=== PATIENT | male | born 2000 | race Native Hawaiian/Other Pacific Islander ===

== ENCOUNTER 2021-11-28 08:09 | Emergency (ER) | payer OTHER ==
[~2021-11-28] VITALS: Ht 177.8 cm; Wt 136.1 kg
[~2021-11-28 08:09] MED LIST: ACETAMINOPHEN-120 ML PO; ADVAIR 100-501 EACH; ALBUTEROL NEB; AZITHROMYCIN 2250 MG PO; IBUPROFEN 800800 M1 PO; PREDNISONE50 MG PO; PROAIR HFA8.5 GM IH; SINGULAIR 10 MG10 M1; TRIAMCINOLONE A15 G1; VENTOLIN HFA INH8 GM; ZPAK PO
[2021-11-28] MEDS ORDERED: HYDROCODON-ACE1 EAC7 PO (09:23)
[2021-11-28 09:56] VITALS: BP 134/72
== END 2021-11-28 10:00 | disposition home or self-care (01) ==
LOC: M.ERS 08:09
DX: S80.02XA Contusion of left knee, initial encounter (principal); M54.50 Low back pain, unspecified; R07.89 Other chest pain; J45.909 Unspecified asthma, uncomplicated; Z98.890 Other specified postprocedural states; Z79.51 Long term (current) use of inhaled steroids; Z79.899 Other long term (current) drug therapy; Z91.018 Allergy to other foods; V89.2XXA Person injured in unspecified motor-vehicle accident, traffic, initial encounter; Y93.89 Activity, other specified; Y92.89 Other specified places as the place of occurrence of the external cause; Y99.8 Other external cause status